=== PATIENT | female | born 1995 | race Caucasian/White ===

== ENCOUNTER 2021-05-13 22:20 | Emergency (ER) | payer BC ==
[~2021-05-13] VITALS: Ht 160 cm; Wt 67.0 kg
--- NOTE | 2021-05-13 22:33 | ED General ---
General Stated Complaint: SOA,LIGHTHEADED History of Present Illness Date Seen by Provider: May 13, 2021 Time Seen by Provider: 22:30 Initial Comments 25-year-old female feels like she has difficulty taking a deep breath. Patient feels like she is little bit short of air. She has some mild lightheadedness/dizziness. She reports her symptoms have been going on for about 3 days. She denies a cough, fever, nausea or vomiting. She does have some generalized malaise. Patient is concerned because her father from [facility]. She also had a tick bite has a small rash on her left upper back. Reports that she noticed the tick on 5 days ago. Patient denies any nausea, vomiting. Patient does report she has significant anxiety and is not sure if this is what is causing her shortness of breath. Allergies and Home Medications Allergies Coded Allergies: amoxicillin (Unverified Adverse Reaction, Mild, vomiting, 05/13/21) clavulanic acid (Unverified Adverse Reaction, Mild, vomiting, 05/13/21) Patient Home Medication List Home Medication List Reviewed: Yes Doxycycline Hyclate (Doxycycline Hyclate) 100 Mg Tablet, 100 MG PO BID Prescribed by: CALI MASON on 05/13/21 773 Sertraline HCl (Sertraline HCl) 100 Mg Tablet, 100 MG PO DAILY, (Reported) Entered as Reported by: ENIO CASTRO on 05/13/212233 Last Action: New Order Review of Systems Review of Systems Constitutional: No chills; dizziness; No fever; malaise Respiratory: short of breath Gastrointestinal: No abdominal pain, No nausea, No vomiting Genitourinary: no symptoms reported Musculoskeletal: no symptoms reported Skin: see HPI, rash Psychiatric/Neurological: Anxiety Hematologic/Lymphatic: No Symptoms Reported Physical Exam Vital Signs Vital Signs - First Documented 05/13/21 22:25 Temp 36.1 Pulse 75 Resp 16 B/P (MAP) 135/87 (103) Pulse Ox 98 O2 Delivery Room Air Capillary Refill : Height, Weight, BMI Height: '" Weight: lbs. oz. kg; BMI Method: General Appearance: No Apparent Distress, WD/WN Neck: Non Tender, Supple Respiratory: Lungs Clear, Normal Breath Sounds Gastrointestinal: Non Tender Extremity: Normal Capillary Refill, Normal Range of Motion Neurologic/Psychiatric: Alert, Oriented x3, No Motor/Sensory Deficits Skin: Other (Small circular rash left flank where she was bit by a tick) Progress/Results/Core Measures Suspected Sepsis SIRS Temperature: Pulse: Respiratory Rate: Laboratory Tests 05/13/21 22:40: White Blood Count 8.8 Blood Pressure / Mean: Laboratory Tests 05/13/21 22:40: Creatinine 0.86, Platelet Count 162, Total Bilirubin 1.0 Results/Orders Lab Results Laboratory Tests Test 05/13/21 22:40 05/13/21 22:45 Range/Units White Blood Count 8.8 4.3-11.0 10^3/uL Red Blood Count 4.70 3.80-5.11 10^6/uL Hemoglobin 14.0 11.5-16.0 g/dL Hematocrit 39 35-52 % Mean Corpuscular Volume 82 80-99 fL Mean Corpuscular Hemoglobin 30 25-34 pg Mean Corpuscular Hemoglobin Concent 36 32-36 g/dL Red Cell Distribution Width 12.7 10.0-14.5 % Platelet Count 162 130-400 10^3/uL Mean Platelet Volume 10.6 9.0-12.2 fL Immature Granulocyte % (Auto) 0 % Neutrophils (%) (Auto) 53 42-75 % Lymphocytes (%) (Auto) 37 12-44 % Monocytes (%) (Auto) 8 0-12 % Eosinophils (%) (Auto) 2 0-10 % Basophils (%) (Auto) 0 0-10 % Neutrophils # (Auto) 4.7 1.8-7.8 10^3/uL Lymphocytes # (Auto) 3.3 1.0-4.0 10^3/uL Monocytes # (Auto) 0.7 0.0-1.0 10^3/uL Eosinophils # (Auto) 0.1 0.0-0.3 10^3/uL Basophils # (Auto) 0.0 0.0-0.1 10^3/uL Immature Granulocyte # (Auto) 0.0 0.0-0.1 10^3/uL Sodium Level 137 135-145 MMOL/L Potassium Level 3.8 3.6-5.0 MMOL/L Chloride Level 102 98-107 MMOL/L Carbon Dioxide Level 22 21-32 MMOL/L Anion Gap 13 5-14 MMOL/L Blood Urea Nitrogen 13 7-18 MG/DL Creatinine 0.86 0.60-1.30 MG/DL Estimat Glomerular Filtration Rate 95 BUN/Creatinine Ratio 15 Glucose Level 98 70-105 MG/DL Calcium Level 9.5 8.5-10.1 MG/DL Corrected Calcium 9.2 8.5-10.1 MG/DL Total Bilirubin 1.0 0.1-1.0 MG/DL Aspartate Amino Transf (AST/SGOT) 17 5-34 U/L Alanine Aminotransferase (ALT/SGPT) 19 0-55 U/L Alkaline Phosphatase 81 40-136 U/L Troponin I < 0.30 <0.30 NG/ML C-Reactive Protein 0.39 <0.50 MG/DL Total Protein 7.5 6.4-8.2 GM/DL Albumin 4.4 3.2-4.5 GM/DL Influenza Type A Antigen NEGATIVE NEGATIVE Influenza Type B Antigen NEGATIVE NEGATIVE My Orders Orders - CALI MASON DO Cbc With Automated Diff (05/13/21 22:33) Comprehensive Metabolic Panel (05/13/21 22:33) Crp Fs (05/13/21 22:33) Troponin I Fs (05/13/21 22:33) Influenza A & B Antigens (05/13/21 22:33) Chest Pa/Lat (2 View) (05/13/21 22:33) Ekg Tracing (05/13/21 22:33) Monitor-Rhythm Ecg Trace Only (05/13/21 22:33) Vital Signs/I&O 05/13/21 05/13/21 22:25 23:39 Temp 36.1 36.1 Pulse 75 70 Resp 16 16 B/P (MAP) 135/87 (103) 125/81 Pulse Ox 98 98 O2 Delivery Room Air Room Air Capillary Refill : Progress Note : Progress Note Patient's exam is benign outside of a rash on her left flank from recent tick bite. Her vital signs are excellent. She has no acute abnormalities on her labs. I will empirically treat her for a tickborne illness with doxycycline. I also think if a little bit of anxiety associated with it due to her father passing from [place]. Patient stable and discharged ECG Initial ECG Impression Date: May 13, 2021 Initial ECG Impression Time: 22:40 Initial ECG Rhythm: Normal Sinus Initial ECG Intervals: Normal Initial ECG Impression: Normal Comment Normal ekg Diagnostic Imaging Diagonstic Imaging: Xray Plain Films/CT/US/NM/MRI: chest Comments normal cxr Reviewed: Reviewed by Me Departure Impression Primary Impression: Tick bite of back wall of thorax Qualified Codes: S20.462A - Insect bite (nonvenomous) of left back wall of thorax, initial encounter; W57.XXXA - Bitten or stung by nonvenomous insect and other nonvenomous arthropods, initial encounter Disposition: HOME, SELF-CARE Condition: Stable Departure-Patient Inst. Referrals: NO,LOCAL PHYSICIAN (PCP/Family) Primary Care Physician Add. Discharge Instructions: Follow-up with your primary care provider as needed You have been given doxycycline due to concerns for your recent bite causing a tickborne illness. Scripts Doxycycline Hyclate (Doxycycline Hyclate) 100 Mg Tablet 100 MG PO BID, #20 TAB 0 Refills Prov: CALI MASON DO 05/13/21 CALI MASON DO May 13, 2021 22:32
[2021-05-13] MEDS ORDERED: SERT-414 PO (22:34)
[2021-05-13 22:59] LABS: BASOPHILS % (AUTO) 0 % (0-10); EOSINOPHILS # (AUTO) 0.1 10^3/uL (0.0-0.3); EOSINOPHILS % (AUTO) 2 % (0-10); HEMATOCRIT 39 % (35-52); LYMPHOCYTES # (AUTO) 3.3 10^3/uL (1.0-4.0); LYMPHOCYTES % (AUTO) 37 % (12-44); MEAN CORPUSCULAR HEMOGLOBIN 30 pg (25-34); MEAN CORPUSCULAR HGB CONC 36 g/dL (32-36); MEAN CORPUSCULAR VOLUME 82 fL (80-99); MEAN PLATELET VOLUME 10.6 fL (9.0-12.2); MONOCYTES # (AUTO) 0.7 10^3/uL (0.0-1.0); MONOCYTES % (AUTO) 8 % (0-12); NEUTROPHILS # (AUTO) 4.7 10^3/uL (1.8-7.8); NEUTROPHILS % (AUTO) 53 % (42-75); PLATELET COUNT 162 10^3/uL (130-400); WHITE BLOOD COUNT 8.8 10^3/uL (4.3-11.0)
[2021-05-13 23:26] LABS: ALANINE AMINOTRANSFERASE 19 U/L (0-55); ALKALINE PHOSPHATASE 81 U/L (40-136); BUN/CREATININE RATIO 15; CALCIUM 9.5 MG/DL (8.5-10.1); CARBON DIOXIDE 22 MMOL/L (21-32); CHLORIDE 102 MMOL/L (98-107); CREATININE SERUM 0.86 MG/DL (0.60-1.30); GFR ESTIMATED 95; GLUCOSE 98 MG/DL (70-105); POTASSIUM 3.8 MMOL/L (3.6-5.0); SODIUM 137 MMOL/L (135-145)
[2021-05-13 23:27] LABS: ALBUMIN 4.4 GM/DL (3.2-4.5); TOTAL PROTEIN 7.5 GM/DL (6.4-8.2)
[2021-05-13] MEDS ORDERED: DOXY100T2 PO (23:36)
[2021-05-13 23:39] VITALS: BP 125/81
--- NOTE | 2021-05-17 07:32 | Diagnostic Imaging Report ---
EXAMINATION: Chest 2 view HISTORY: Shortness of breath. Lightheadedness. COMPARISON: None available. FINDINGS: The lung volumes are normal. No focal consolidation is seen. No large pleural effusion or pneumothorax is seen. The cardiomediastinal silhouette is normal in size and contour. No acute osseous abnormality is seen. IMPRESSION: 1. No acute pleuroparenchymal process. Dictated by: Dictated on workstation # [id number]
== END 2021-05-13 23:39 | disposition home or self-care (01) ==
LOC: ER FS 22:22
DX: S20.462A Insect bite (nonvenomous) of left back wall of thorax, initial encounter (principal); W57.XXXA Bitten or stung by nonvenomous insect and other nonvenomous arthropods, initial encounter
CPT/HCPCS: 36415; 71046; 80053; 84484; 85025; 86141; 87804; 93005